=== PATIENT | male | born 1970 | race Caucasian/White ===

== ENCOUNTER → 2023-01-10 09:42 | Outpatient (CLI) | payer OTHER, SELFPAY ==
--- NOTE | 2023-01-10 | DI.RAD.S_ITS ---
PROCEDURE: XR KNEE LT 3V INDICATIONS: KNEE PAIN TECHNIQUE: 3 views of the knee were acquired. COMPARISON: None. FINDINGS: Bones: No fractures or dislocations. No suspicious bony lesions. Mild patellofemoral osteoarthrosis. Soft tissues: No joint effusion. No suspicious soft tissue calcifications. IMPRESSION: Left knee without acute fracture or dislocation. Mild patellofemoral osteoarthrosis. Dictated by: Sy Grey M.D. on 01/10/2023 at 12:27 Approved by: Sy Grey M.D. on 01/10/2023 at 12:28
--- NOTE | 2023-01-10 | DI.RAD.S_ITS ---
PROCEDURE: XR HIP W PEL IF DONE LT 2V INDICATIONS: HIP PAIN TECHNIQUE: AP pelvis with lateral view(s) of the left hip(s). COMPARISON: None. FINDINGS: Bones: No acute fractures or dislocations. Pelvic ring appears intact. No suspicious bony lesions. Chronic appearing ossific density projecting adjacent to the left greater trochanter. This may represent sequela of remote avulsion versus enthesopathy. No significant degenerative changes seen. Soft tissues: The visualized bowel gas pattern is normal. No suspicious soft tissue calcifications. IMPRESSION: Left hip without acute osseous abnormalities. No significant degenerative changes identified. If there are persistent symptoms or clinical suspicion for pathology, then repeat radiographs or advanced imaging (CT or MRI) may be considered for further evaluation. Dictated by: Sy Grey M.D. on 01/10/2023 at 12:28 Approved by: Sy Grey M.D. on 01/10/2023 at 12:30
== END ==
PROVIDERS: Referring Provider Internal Medicine Cardiovascular Disease; Visit Provider Internal Medicine Cardiovascular Disease
DX: M19.90 Unspecified osteoarthritis, unspecified site (principal); M25.552 Pain in left hip
CPT/HCPCS: 73502; 73562